=== PATIENT | female | born 1960 | race Caucasian/White ===

== ENCOUNTER → 2023-12-12 11:20 | Outpatient (REF) | payer OTHER, SELFPAY | LOC: RAD 11:20 | PROVIDERS: ATTENDING PHYSICIAN Physician Assistant Medical | DX: R91.1 Solitary pulmonary nodule (principal) | CPT/HCPCS: 71260; Q9967 ==

== ENCOUNTER → 2023-12-15 09:33 | Outpatient (REF) | payer OTHER, SELFPAY | LOC: HWWDC 09:33 | PROVIDERS: ATTENDING PHYSICIAN Physician Assistant Medical; REFERRING PHYSICIAN Nurse Practitioner Family | DX: Z12.31 Encounter for screening mammogram for malignant neoplasm of breast (principal) | CPT/HCPCS: 77063; 77067 ==

== ENCOUNTER 2024-04-11 06:40 | Day surgery (SDC) | payer OTHER, SELFPAY ==
[2024-04-11 08:21] VITALS: BP 118/73
[2024-04-11 08:32] VITALS: BMI 24.0
[2024-04-11 10:20] VITALS: BP 132/78
[2024-04-11 10:24] VITALS: BP 132/78
[2024-04-11 10:30] VITALS: BP 133/76
[2024-04-11 10:35] VITALS: BP 131/79
== END 2024-04-11 10:58 | disposition home or self-care (01) ==
LOC: SDS 06:40
PROVIDERS: ATTENDING PHYSICIAN Internal Medicine Gastroenterology
DX: D12.2 Benign neoplasm of ascending colon (principal); K64.0 First degree hemorrhoids; Z98.890 Other specified postprocedural states
CPT/HCPCS: 45390; 45385; 88305

== ENCOUNTER → 2024-10-22 06:25 | Day surgery (SDC) | payer OTHER, SELFPAY | LOC: GI 06:25 | PROVIDERS: ATTENDING PHYSICIAN Internal Medicine Gastroenterology | DX: Z12.11 Encounter for screening for malignant neoplasm of colon (principal); D12.0 Benign neoplasm of cecum; K63.5 Polyp of colon; Z86.0101 Personal history of adenomatous and serrated colon polyps; Z98.890 Other specified postprocedural states | CPT/HCPCS: 45385; 45380; 88305 ==

== ENCOUNTER → 2024-12-31 09:25 | Outpatient (REF) | payer OTHER, SELFPAY | LOC: HWWDC 09:25 | PROVIDERS: ATTENDING PHYSICIAN Obstetrics & Gynecology; FAMILY PHYSICIAN Physician Assistant Medical | DX: Z12.31 Encounter for screening mammogram for malignant neoplasm of breast (principal) | CPT/HCPCS: 77063; 77067 ==